=== PATIENT | female | born 1950 | race Caucasian/White ===

== ENCOUNTER → 2016-08-13 | Outpatient (CLI) | payer OTHER ==
[~2016-08-13] MED LIST: DARVOCET-N 1001 TAB PO; LIPITOR PO; LOSARTAN POTAS100 MG PO; LOW DOSE ASPIRI81 M1 PO
--- NOTE | ~2016-08-13 | CT138 ---
[facility] A Service [facility] RADIOLOGY TEXT RESULTS PATIENT: NANDINI BRISCOE LOCATION: [facility] : 52 UNIT #: [id number] AGE: [address]: Venessa Wilson MD SEX: F ORDER DR: [id number] [place] [id number] [facility]. [place], [place] [address] [id number] O MR#: [id number] [facility] #: [id number] NAME: NANDINI BRISCOE : 1950 SEX: F STUDY DATE/TIME: 08/13/2016 10:28 UNIT: [facility] ROOM: STUDY DESCRIPTION: CT Lung screening initial Attending Physician: Venessa Wilson M.D. Referring Physician: Venessa Wilson M.D. Ordering Physician: Venessa Wilson M.D. Primary Care Physician: Venessa Wilson M.D. MEDICAL IMAGING REPORT This report is preliminary unless electronic signature is present EXAM Lung cancer screening CT scan. Initial study. INDICATIONS Smoking history, one pack per day for 31 years. Lung cancer screening. COMPARISON CT chest, 03/05/2015. TECHNIQUE This CT exam was performed with one or more of the following radiation dose reduction techniques: automatic exposure control, adjustment of mA and/or kV according to patient size, and iterative reconstruction. FINDINGS The CT-DI volume in mGy is 2.6 and the DLP mGy-cm is 82.73. Axial 2 mm images were obtained through the chest and sagittal and coronal reconstructions were generated. There is a calcified granuloma in the right upper lobe measuring about a centimeter in diameter. There are no other nodules identified. The thyroid gland is normal. The aorta is normal in size. There are calcified hilar lymph nodes. The visualized portion of the upper abdomen are normal. The bones are unremarkable. IMPRESSION 1. CT chest without contrast with lung cancer screening technique is negative for evidence of malignancy. There is calcified granuloma in the right lung. 2. LungRADS category 1, annual screening study recommended. [facility] RADIOLOGY TEXT RESULTS PATIENT: NANDINI BRISCOE LOCATION: [facility] : 52 UNIT #: [id number] AGE: [address]: Venessa Wilson MD SEX: F ORDER DR: Dictated by... Ward Ron M.D. THIS IS AN ELECTRONICALLY VERIFIED REPORT Ward Ron M.D. at 08/14/2016 9:42 AM LUIS ENRIQUE/belle TD: 08/13/2016 18:29 JOB #: [id number] MEDICAL IMAGING REPORT Page 1 of 1 COPY
== END | disposition home or self-care (01) ==
LOC: CCAT 09:01
DX: Z87.891 Personal history of nicotine dependence (principal); J98.4 Other disorders of lung
CPT/HCPCS: G0297

== ENCOUNTER → 2016-08-13 | Outpatient (CLI) | payer OTHER ==
--- NOTE | ~2016-08-13 | CT4 ---
[facility] A Service of [facility] & [facility] RADIOLOGY TEXT RESULTS PATIENT: NANDINI BRISCOE LOCATION: [facility] : 52 UNIT #: [id number] AGE: [address]: Livan Hagan MD SEX: F ORDER DR: [id number] [facility] [address] [place], [place] [address] [id number] O MR#: [id number] [facility] #: [id number] NAME: NANDINI BRISCOE : 1950 SEX: F STUDY DATE/TIME: 08/13/2016 UNIT: [facility] ROOM: STUDY DESCRIPTION: CT Abd and Pelv Wo Cont Attending Physician: Livan Hagan M.D. Referring Physician: Livan Hagan M.D. Ordering Physician: Livan Hagan M.D. Primary Care Physician: Venessa Wilson M.D. MEDICAL IMAGING REPORT This report is preliminary unless electronic signature is present EXAM CT abdomen and pelvis without contrast HISTORY Microhematuria. Asymptomatic. TECHNIQUE CT abdomen and pelvis was performed without contrast. This CT exam was performed with one or more of the following radiation dose reduction techniques: automatic exposure control, adjustment of mA and/or kV according to patient size, and iterative reconstruction. The patient reports prior IV contrast allergy. FINDINGS CT ABDOMEN: Multifocal geographic fatty infiltration of the liver. Small hiatal hernia. The gallbladder, spleen, pancreas, adrenal glands and right kidney are unremarkable. There is a 1.8 cm x 1.4 cm cyst in the posteromedial margin of the upper pole left kidney, stable compared to CT 03/05/2015. This could be further assessed with renal ultrasound or, if the patient can be pre-medicated, post-IV contrast CT. No renal calculi. No bowel dilatation. Normal caliber abdominal aorta. CT PELVIS: Normal appendix. No free fluid or inflammatory changes. The uterus and adnexa are unremarkable. Mild sigmoid diverticulosis. Urinary bladder is normal. IMPRESSION 1. Stable 1.4 cm x 1.8 cm cyst in the posteromedial upper pole left kidney, unchanged compared to CT 03/05/2015. Characterization is limited without IV contrast. The patient reported prior IV contrast STS. [facility] A Service of [facility] & [facility] RADIOLOGY TEXT RESULTS PATIENT: NANDINI BRISCOE LOCATION: [facility] : 52 UNIT #: [id number] AGE: [address]: Livan Hagan MD SEX: F ORDER DR: allergy. This could be further characterized with renal ultrasound or, if the patient can be pre-medicated, post-IV contrast CT. 2. No renal calculi. No hydronephrosis. No additional renal mass is identified. 3. Multifocal geographic fatty infiltration of the liver. Dictated by... Alexx Powell M.D. THIS IS AN ELECTRONICALLY VERIFIED REPORT Alexx Powell M.D. at 08/14/2016 11:26 PM ANNA/alisa TD: 08/13/2016 22:09 JOB #: [id number] MEDICAL IMAGING REPORT Page 1 of 1 COPY
== END | disposition home or self-care (01) ==
LOC: CCAT 09:11
DX: R31.21 Asymptomatic microscopic hematuria (principal); N28.1 Cyst of kidney, acquired; K76.0 Fatty (change of) liver, not elsewhere classified
CPT/HCPCS: 74176